=== PATIENT | female | born 1950 | race Caucasian/White ===

== ENCOUNTER 2022-03-08 13:20 | Emergency (ER) | payer OTHER ==
[~2022-03-08] VITALS: Ht 160 cm; Wt 103.0 kg
[2022-03-08 13:34] VITALS: BP_SYST 155
--- NOTE | 2022-03-08 13:51 | NUR ---
PT TRIAGED AND PLACED IN ED LOBBY FOR AVAILABLE BED IN MAIN ED
--- NOTE | 2022-03-08 15:00 | NUR ---
Patient left without being seen.
== END 2022-03-08 15:00 | disposition left against medical advice (07) ==
LOC: SED 13:20
DX: H53.8 Other visual disturbances (principal)